=== PATIENT | female | born 1975 | race Caucasian/White ===

== ENCOUNTER 2021-09-08 17:46 | Emergency (ER) | payer OTHER ==
[~2021-09-08] VITALS: Ht 170.2 cm; Wt 74.8 kg
[2021-09-08 17:56] VITALS: BP 117/71
--- NOTE | 2021-09-08 18:16 | NUR ---
URINE COLLECTED AND SENT TO THE LAB
--- NOTE | 2021-09-08 19:43 | NUR ---
pt refused xray
--- NOTE | 2021-09-08 19:50 | NUR ---
Patient does not wish to proceed with medical care recommended by Ilda Jasso pa. Patient given information related to possible complications, up to and including , which could occur as a result of leaving the hospital at this time. Patient verbalizes understanding of risks involved due to leaving against medical advice. Patient has signed AMA form.
== END 2021-09-08 19:50 | disposition left against medical advice (07) ==
LOC: ER 17:50
DX: Z53.21 Procedure and treatment not carried out due to patient leaving prior to being seen by health care provider (principal); M54.50 Low back pain, unspecified